=== PATIENT | male | born 1990 | race Hispanic/Latino ===

== ENCOUNTER 2019-07-16 08:55 | Outpatient (RCR) | payer BC | END 2019-07-20 | LOC: PT 08:55 | PROVIDERS: ATTEND Podiatrist Foot & Ankle Surgery | DX: M76.62 Achilles tendinitis, left leg (principal); M62.81 Muscle weakness (generalized); M25.672 Stiffness of left ankle, not elsewhere classified; M79.672 Pain in left foot ==

== ENCOUNTER 2019-08-11 09:00 | Outpatient (RCR) | payer BC | END 2019-08-20 | LOC: PT 09:00 | PROVIDERS: ATTEND Podiatrist Foot & Ankle Surgery | DX: M76.62 Achilles tendinitis, left leg (principal); M62.81 Muscle weakness (generalized); M79.672 Pain in left foot; M25.672 Stiffness of left ankle, not elsewhere classified | CPT/HCPCS: 97139 ==

== ENCOUNTER 2019-09-15 09:00 | Outpatient (RCR) | payer BC | END 2019-09-19 | LOC: PT 09:00 | PROVIDERS: ATTEND Orthopaedic Surgery | DX: M76.62 Achilles tendinitis, left leg (principal); M54.5 Low back pain; S33.5XXA Sprain of ligaments of lumbar spine, initial encounter | CPT/HCPCS: 97139 ==